=== PATIENT | female | born 1980 | race Caucasian/White ===

== ENCOUNTER 2016-07-31 13:27 | Outpatient (CLI) | payer MEDICAID | END 2016-07-31 13:28 | disposition home or self-care (01) | DX: R06.2 Wheezing (principal) ==

== ENCOUNTER 2016-10-21 09:22 | Outpatient (CLI) | payer MEDICAID ==
[2016-10-21 13:07] LABS: BASOPHILS % (AUTO) 0.3 %; EOSINOPHILS # (AUTO) 0.1 10^3/uL (0.0-0.7); EOSINOPHILS % (AUTO) 1.9 %; HCT - HEMATOCRIT 37.5 % (37.0-47.0); HGB - HEMOGLOBIN 12.7 g/dL (12.0-16.0); IMMATURE RETIC FRACTION 0.31; LYMPHOCYTES # (AUTO) 2.4 10^3/uL (1.5-3.5); LYMPHOCYTES % (AUTO) 31.7 %; MEAN CORPUSCULAR HEMOGLOBIN 30.3 pg (27.0-31.0); MEAN CORPUSCULAR HGB CONC 33.8 g/dL (32.0-36.0); MEAN CORPUSCULAR VOLUME 89.5 fL (81.0-99.0); MEAN PLATELET VOLUME 8.1 fL (7.9-10.8); MONOCYTES # (AUTO) 0.5 10^3/uL (0.0-1.0); MONOCYTES % (AUTO) 7.1 %; NEUTROPHILS # (AUTO) 4.5 10^3/uL (1.5-6.6); RED BLOOD COUNT 4.19 10^6/uL (4.20-5.40); RED CELL DISTRIBUTION WIDTH 13.2 % (12.0-15.0); UNCORRECTED WHITE BLOOD COUNT 7.6 x10^3/uL; WHITE BLOOD COUNT 7.6 x10^3/uL (4.8-10.8)
[2016-10-21 13:39] LABS: ALBUMIN/GLOBULIN RATIO 1.3 (1.0-2.2); BILIRUBIN,TOTAL 0.6 mg/dL (0.2-1.0); BUN - BLOOD UREA NITROGEN 12 mg/dL (6-20); CALCIUM 9.8 mg/dL (8.5-10.3); CARBON DIOXIDE - CO2 26 mmol/L (21-32); CHLORIDE 103 mmol/L (101-111); CHOL/HDL RATIO 3.1 (<4.4); CHOLESTEROL 239 mg/dL; CREATININE 0.7 mg/dL (0.4-1.0); FERRITIN 27.1 ng/mL (11.0-306.8); GFR - MDRD 94 (>89); GLUCOSE 106 mg/dL (70-100); HDL CHOLESTEROL 78 mg/dL; IRON 60 ug/dL (28-170); LDL/HDL RATIO 1.8 (<4.4); POTASSIUM 3.7 mmol/L (3.5-5.0); SODIUM 137 mmol/L (135-145); TOTAL IRON BINDING CAPACITY 382 ug/dL (250-450); TOTAL PROTEIN 7.5 g/dL (6.7-8.2); TRANSFERRIN 273 mg/dL (192-382); TRIGLYCERIDES 116 mg/dL; VLDL CHOLESTEROL 23 mg/dL
[2016-10-21 13:42] LABS: FOLATE 17.4 ng/mL (5.90 - >24.8)
[2016-10-21 13:52] LABS: THYROID STIMULATING HORMONE 0.91 uIU/mL (0.34-5.60)
== END 2016-10-21 09:23 | disposition home or self-care (01) ==
LOC: LAB.N 09:22
PROVIDERS: ATTEND Physician Assistant
DX: R53.83 Other fatigue (principal)
CPT/HCPCS: 36415; 80053; 80061; 82607; 82728; 82746; 83540; 84443; 84466; 85025; 85044; 85651; 86200

== ENCOUNTER 2020-01-11 12:31 | Outpatient (CLI) | payer MEDICAID, OTHER ==
[2020-01-11 18:27] LABS: BASOPHILS % (AUTO) 0.2 %; EOSINOPHILS # (AUTO) 0.1 10^3/uL (0.0-0.7); EOSINOPHILS % (AUTO) 1.5 %; HGB - HEMOGLOBIN 13.1 g/dL (12.0-16.0); LYMPHOCYTES # (AUTO) 1.7 10^3/uL (1.5-3.5); LYMPHOCYTES % (AUTO) 32.1 %; MEAN CORPUSCULAR HEMOGLOBIN 30.7 pg (27.0-31.0); MEAN CORPUSCULAR HGB CONC 33.3 g/dL (32.0-36.0); MEAN PLATELET VOLUME 10.2 fL (7.9-10.8); MONOCYTES # (AUTO) 0.4 10^3/uL (0.0-1.0); MONOCYTES % (AUTO) 7.9 %; NEUTROPHILS # (AUTO) 3.2 10^3/uL (1.5-6.6); NEUTROPHILS % (AUTO) 58.1 %; PLT - PLATELET COUNT 289 10^3/uL (130-450); RED BLOOD COUNT 4.27 10^6/uL (4.20-5.40); RED CELL DISTRIBUTION WIDTH 13.2 % (12.0-15.0); WHITE BLOOD COUNT 5.4 x10^3/uL (4.8-10.8)
[2020-01-11 19:35] LABS: ALBUMIN 4.3 g/dL (3.2-5.5); ALBUMIN/GLOBULIN RATIO 1.3 (1.0-2.2); ALKALINE PHOSPHATASE 69 IU/L (42-121); ALT ALANINE AMINOTRANSFERASE 27 IU/L (10-60); AST ASPARTATE AMINOTRANSFERASE 24 IU/L (10-42); BILIRUBIN,TOTAL 0.6 mg/dL (0.2-1.0); BUN - BLOOD UREA NITROGEN 14 mg/dL (6-20); CALCIUM 9.2 mg/dL (8.5-10.3); CARBON DIOXIDE - CO2 25 mmol/L (21-32); CHLORIDE 104 mmol/L (101-111); CHOL/HDL RATIO 3.9 (<4.4); CHOLESTEROL 282 mg/dL; CREATININE 0.7 mg/dL (0.4-1.0); GLUCOSE 96 mg/dL (70-100); HDL CHOLESTEROL 72 mg/dL; LDL CHOLESTEROL,CALCULATED 183 mg/dL; LDL/HDL RATIO 2.5 (<4.4); SODIUM 137 mmol/L (135-145); TOTAL PROTEIN 7.5 g/dL (6.7-8.2); VLDL CHOLESTEROL 27 mg/dL
[2020-01-11 21:09] LABS: HEMOGLOBIN A1c% 5.6 % (4.27-6.07)
== END 2020-01-11 23:59 | disposition home or self-care (01) ==
LOC: LAB.WCP 12:31
PROVIDERS: ATTEND Physician Assistant
DX: Z00.00 Encounter for general adult medical examination without abnormal findings (principal)
CPT/HCPCS: 36415; 80053; 80061; 83036; 83721; 84443; 85025